=== PATIENT | female | born 2000 | race Caucasian/White ===

== ENCOUNTER 2021-01-16 14:38 | Emergency (ER) | payer BC ==
[2021-01-16 15:02] VITALS: O2SAT 98
[2021-01-16 15:45] LABS: Appearance CLOUDY (CLEAR); Bacteria FEW /HPF (NEGATIVE); Bilirubin NEGATIVE (NEGATIVE); Blood LARGE Ery/ul (0-5); Epithelial Cells MANY /HPF (FEW); Glucose NEGATIVE (NEGATIVE); Ketones NEGATIVE (NEGATIVE); Leukocyte Esterase MODERATE (NEGATIVE); Mucus SLIGHT /HPF (NEGATIVE); Nitrite NEGATIVE (NEGATIVE); Protein,Urine Dip 100 (Negative); RBC 51-100 /HPF (0-2); Specific Gravity 1.029 (1.005-1.025); Urobilinogen NEGATIVE mg/dL (0-1); WBC >100 /HPF (0-5)
[2021-01-16 15:57] LABS: Absolute Neutrophil Ct (ANC) 6.43 (1.4-6.9); BASOPHIL % 0.3 % (0.0-0.4); Basophil (Absolute #) 0.03 (0-0.4); Eosinophil % 1.2 % (0.00-5.0); Eosinophil (Absolute #) 0.14 (0-0.5); Hematocrit 42.9 % (35-47); Hemoglobin 14.3 gm/dl (12.0-16.0); Lymphocyte (Absolute #) 4.33 (1.0-4.6); Lymphocytes % 36.2 % (24.0-44.0); Mean Cell Volume 93.9 fl (78-100); Mean Corpuscular Hemoglobin 31.3 pg (26-32); Mean Corpuscular Hgb Concent. 33.3 g/dl (32-36); Mean Platelet Volume 10.8 fl (7.5-11.0); Monocyte (Absolute #) 1.02 (0.0-1.3); Monocytes % 8.5 % (0.0-12.0); Neutrophil % 53.8 % (36.0-66.0); Platelet Count 285 K/mm3 (150-450); Red Blood Count 4.57 M/mm3 (4.1-5.4); Red Cell Distribution Width 12.6 % (11.5-14.0)
[2021-01-16 16:21] LABS: ALBUMIN 4.3 g/dL (3.5-5.0); ALKALINE PHOSPHATASE 82 U/L (38-126); ANION GAP 12.5 MEQ/L (5-15); BLOOD UREA NITROGEN 10 mg/dL (7-17); CHLORIDE 103 mmol/L (98-107); Calcium 9.8 mg/dL (8.4-10.2); Carbon Dioxide 27 mmol/L (22-30); Creatinine 1 0.63 mg/dL (0.52-1.04); EST GLOMERULAR FILTRATION RATE > 60.0 ML/MIN; Glucose 89 mg/dL (74-106); Potassium 4.3 mmol/L (3.5-5.1); SGOT/AST 45 U/L (14-36); SGPT/ALT 40 U/L (0-35); SODIUM 138 mmol/L (137-145); Total Protein 8.2 g/dL (6.3-8.2)
--- NOTE | 2021-01-16 16:30 | ERPHSYRPT ---
- History of Present Illness Time Seen by Provider: 01/16/21 14:50 Source: patient Exam Limitations: no limitations Patient Subjective Stated Complaint: pelvic pain Triage Nursing Assessment: pt to ED c/o pelvic pain x 3 days. states pain started as burning within her vagina but has now starting burning throughout entire pelvic region. states she was menstrating for 2 days that ended yesterday, which is when pain increased. pt reports hx PCOS but normally has month menstration lasting 7 days. does not take any form of control. sexually active last 2 months ago, unknown status. Physician History: Patient is a 20-year-old 0 para 0 who presents with pelvic pain. She has been diagnosed clinically with polycystic ovary syndrome and normally has weekly her week long periods on a regular basis. The last 3 to 4 months has been irregular. She started. Which lasted only 2 days and stopped. She had last had intercourse approximately 2 months ago and had a home test that was negative. After her period stop she began having burning pain in the vaginal area which has spread to involve most of the pelvis. Timing/Duration: day(s) (4) Activites at Onset: none Quality: burning Pain Radiation: vaginal Severity of Pain-Max: moderate Severity of Pain-Current: mild Prior abdominal problems: none Sexual intercourse history: non-contributory Modifying Factors: Improves With: nothing Associated Symptoms: dysuria, No vaginal discharge, No vaginal fluid leakage Allergies/Adverse Reactions: No Known Drug Allergies Allergy (Unverified 01/16/21 15:02) Hx Tetanus, Diphtheria Vaccination/Date Given: Yes Hx Influenza Vaccination/Date Given: Yes Hx Pneumococcal Vaccination/Date Given: No Travel Risk - International Travel Have you traveled outside of the country in past 3 weeks: No - Coronavirus Screening Are you exhibiting any of the following symptoms?: No Close contact with a COVID-19 positive Pt in past 14-21 Days: No - Vaccine Status Have you recieved a Covid-19 vaccination: No - Review of Systems Constitutional: No Fever, No Chills Eyes: No Symptoms Ears, Nose, & Throat: No Symptoms Respiratory: No Cough, No Dyspnea Cardiac: No Chest Pain, No Edema, No Syncope Abdominal/Gastrointestinal: No Abdominal Pain, No Nausea, No Vomiting, No Diarrhea Genitourinary Symptoms: Other (Vaginal and pelvic burning pain), No Dysuria Musculoskeletal: No Back Pain, No Neck Pain Skin: No Rash Neurological: No Dizziness, No Focal Weakness, No Sensory Changes Psychological: No Symptoms Endocrine: No Symptoms All Other Systems: Reviewed and Negative - Past Medical History Pertinent Past Medical History: Yes Other Medical History: PCOS, [place] wears hearing aids - Past Surgical History Past Surgical History: No - Social History Smoking Status: Never smoker Exposure to second hand smoke: No Drug Use: none Patient Lives Alone: No - Female History Hx Last Menstrual Period: 2 days ago Hx Now: No - Nursing Vital Signs Nursing Vital Signs: Initial Vital Signs Temperature 97.5 F 01/16/21 14:45 Pulse Rate 72 01/16/21 14:45 Respiratory Rate 18 01/16/21 14:45 Blood Pressure 133/101 01/16/21 14:45 O2 Sat by Pulse Oximetry 98 01/16/21 14:45 Pain Scale Pain Intensity 6 - Physical Exam General Appearance: mild distress Eye Exam: PERRL/EOMI, eyes nml inspection Ears, Nose, Throat Exam: normal ENT inspection, TMs normal, pharynx normal, moist mucous membranes Neck Exam: normal inspection, non-tender, supple, full range of motion Respiratory Exam: normal breath sounds, lungs clear, No respiratory distress Cardiovascular Exam: regular rate/rhythm, normal heart sounds, normal peripheral pulses Gastrointestinal/Abdomen Exam: soft, No tenderness, No mass Pelvic Exam: adnexal tenderness (No adnexal tenderness), No cervical motion tenderness, No vaginal bleeding Back Exam: normal inspection, normal range of motion, No CVA tenderness, No vertebral tenderness Extremity Exam: normal inspection, normal range of motion, pelvis stable Neurologic Exam: alert, oriented x 3, cooperative, dry primer powder blender II-XII nml as tested, normal mood/affect, sensation nml, No motor deficits Skin Exam: normal color, warm, dry Lymphatic Exam: No adenopathy SpO2: 98 - Radiology Ultrasound Exam Pelvis Ultrasound: negative, No Mass, No Torsion/Nml Flow Ordered Tests: Active Orders 24 hr Category Date Time Status PELVIS TRANS VAGINAL [US] Stat Exams 01/16/21 15:34 Taken CBC W DIFF Stat Lab 01/16/21 15:54 Completed CMP Stat Lab 01/16/21 15:54 Completed CULTURE,URINE Stat Lab 01/16/21 15:39 Received HCG QUALITATIVE,SERUM Stat Lab 01/16/21 15:54 Completed UA W/RFX UR CULTURE Stat Lab 01/16/21 15:39 Completed Lab/Rad Data: Laboratory Result Diagrams 01/16/21 15:54 01/16/21 15:54 Laboratory Results 01/16/21 01/16/21 01/16/21 Range/Units 15:54 15:54 15:54 WBC 12.0 H (4.0-10.5) K/mm3 RBC 4.57 (4.1-5.4) M/mm3 Hgb 14.3 (12.0-16.0) gm/dl Hct 42.9 (35-47) % MCV 93.9 (78-100) fl MCH 31.3 (26-32) pg MCHC 33.3 (32-36) g/dl RDW 12.6 (11.5-14.0) % Plt Count 285 (150-450) K/mm3 MPV 10.8 (7.5-11.0) fl Gran % 53.8 (36.0-66.0) % Eos # (Auto) 0.14 (0-0.5) Absolute Lymphs (auto) 4.33 (1.0-4.6) Absolute Monos (auto) 1.02 (0.0-1.3) Lymphocytes % 36.2 (24.0-44.0) % Monocytes % 8.5 (0.0-12.0) % Eosinophils % 1.2 (0.00-5.0) % Basophils % 0.3 (0.0-0.4) % Absolute Granulocytes 6.43 (1.4-6.9) Basophils # 0.03 (0-0.4) Sodium 138 (137-145) mmol/L Potassium 4.3 (3.5-5.1) mmol/L Chloride 103 (98-107) mmol/L Carbon Dioxide 27 (22-30) mmol/L Anion Gap 12.5 (5-15) MEQ/L BUN 10 (7-17) mg/dL Creatinine 0.63 (0.52-1.04) mg/dL Estimated GFR > 60.0 ML/MIN Glucose 89 (74-106) mg/dL Calcium 9.8 (8.4-10.2) mg/dL Total Bilirubin 0.60 (0.2-1.3) mg/dL AST 45 H (14-36) U/L ALT 40 H (0-35) U/L Alkaline Phosphatase 82 (38-126) U/L Serum Total Protein 8.2 (6.3-8.2) g/dL Albumin 4.3 (3.5-5.0) g/dL Serum , Qual NEGATIVE (Negative) Urine Color (YELLOW) Urine Appearance (CLEAR) Urine pH (5-6) Ur Specific [place] (1.005-1.025) Urine Protein (Negative) Urine Ketones (NEGATIVE) Urine Blood (0-5) Jameel/ul Urine Nitrite (NEGATIVE) Urine Bilirubin (NEGATIVE) Urine Urobilinogen (0-1) mg/dL Ur Leukocyte Esterase (NEGATIVE) Urine WBC (Auto) (0-5) /HPF Urine RBC (Auto) (0-2) /HPF U Epithel Cells (Auto) (FEW) /HPF Urine Bacteria (Auto) (NEGATIVE) /HPF Urine Mucus (Auto) (NEGATIVE) /HPF Urine Culture Reflexed (NO) Urine Glucose (NEGATIVE) mg/dL 01/16/21 Range/Units 15:39 WBC (4.0-10.5) K/mm3 RBC (4.1-5.4) M/mm3 Hgb (12.0-16.0) gm/dl Hct (35-47) % MCV (78-100) fl MCH (26-32) pg MCHC (32-36) g/dl RDW (11.5-14.0) % Plt Count (150-450) K/mm3 MPV (7.5-11.0) fl Gran % (36.0-66.0) % Eos # (Auto) (0-0.5) Absolute Lymphs (auto) (1.0-4.6) Absolute Monos (auto) (0.0-1.3) Lymphocytes % (24.0-44.0) % Monocytes % (0.0-12.0) % Eosinophils % (0.00-5.0) % Basophils % (0.0-0.4) % Absolute Granulocytes (1.4-6.9) Basophils # (0-0.4) Sodium (137-145) mmol/L Potassium (3.5-5.1) mmol/L Chloride (98-107) mmol/L Carbon Dioxide (22-30) mmol/L Anion Gap (5-15) MEQ/L BUN (7-17) mg/dL Creatinine (0.52-1.04) mg/dL Estimated GFR ML/MIN Glucose (74-106) mg/dL Calcium (8.4-10.2) mg/dL Total Bilirubin (0.2-1.3) mg/dL AST (14-36) U/L ALT (0-35) U/L Alkaline Phosphatase (38-126) U/L Serum Total Protein (6.3-8.2) g/dL Albumin (3.5-5.0) g/dL Serum , Qual (Negative) Urine Color DOMO (YELLOW) Urine Appearance CLOUDY (CLEAR) Urine pH 5.0 (5-6) Ur Specific [place] 1.029 (1.005-1.025) Urine Protein 100 (Negative) Urine Ketones NEGATIVE (NEGATIVE) Urine Blood LARGE (0-5) Jameel/ul Urine Nitrite NEGATIVE (NEGATIVE) Urine Bilirubin NEGATIVE (NEGATIVE) Urine Urobilinogen NEGATIVE (0-1) mg/dL Ur Leukocyte Esterase MODERATE (NEGATIVE) Urine WBC (Auto) >100 (0-5) /HPF Urine RBC (Auto) 51-100 (0-2) /HPF U Epithel Cells (Auto) MANY (FEW) /HPF Urine Bacteria (Auto) FEW (NEGATIVE) /HPF Urine Mucus (Auto) SLIGHT (NEGATIVE) /HPF Urine Culture Reflexed YES (NO) Urine Glucose NEGATIVE (NEGATIVE) mg/dL - Progress Progress: improved Air Movement: good Blood Culture(s) Obtained: No Antibiotics given: No - Departure Departure Disposition: Home Clinical Impression: Urinary tract infection Condition: Stable Critical Care Time: No Referrals: DOCTOR,NO FAMILY [Primary Care Provider] - Instructions: Urinary Tract Infection, Adult (DC) Prescriptions: Cephalexin Mh 500 mg [Keflex 500 mg] 500 mg PO TID #21 cap
--- NOTE | 2021-01-16 16:37 | XRAY ---
Indication: Pelvic pain. Two-dimensional transvaginal pelvic sonogram performed. Comparison: None Uterus anteverted measuring 7.6 x 4.2 x 4.8 cm. Cervix demonstrates 4 mm nabothian cyst. Remaining myometrium homogeneous. Endometrial stripe measures 4.9 mm. No endometrial cavity mass or fluid collection. Right ovary measures 2.0 x 1.6 x 1.6 cm and the left measures 2.1 x 1.4 x 1.8 cm. Normal perfusion bilaterally. No suspicious adnexal mass or free fluid. Impression: Tiny cervical nabothian cyst. Remaining transvaginal pelvic sonogram is negative.
[2021-01-16 16:39] VITALS: BP 129/82; PULSE 82
== END 2021-01-16 17:09 | disposition home or self-care (01) ==
LOC: ED 14:38
DX: R10.2 Pelvic and perineal pain (principal); E28.2 Polycystic ovarian syndrome; N39.0 Urinary tract infection, site not specified
CPT/HCPCS: 36415; 76830; 80053; 81001; 81025; 85025; 87077; 87086; 87186; 99283

== ENCOUNTER 2021-01-20 01:28 | Emergency (ER) | payer BC ==
[2021-01-20] MEDS ORDERED: Levofloxacin 500 MG Tablet PO ONE (01:43)
[2021-01-20] MEDS ORDERED: Diflucan 100 MG PO ONE (01:44)
[2021-01-20 01:53] LABS: Appearance CLOUDY (CLEAR); Bacteria MODERATE /HPF (NEGATIVE); Bilirubin NEGATIVE (NEGATIVE); Blood MODERATE Ery/ul (0-5); Epithelial Cells FEW /HPF (FEW); Glucose NEGATIVE (NEGATIVE); Ketones NEGATIVE (NEGATIVE); Leukocyte Esterase MODERATE (NEGATIVE); Mucus SLIGHT /HPF (NEGATIVE); Nitrite NEGATIVE (NEGATIVE); Protein,Urine Dip 30 (Negative); RBC 51-100 /HPF (0-2); Specific Gravity 1.031 (1.005-1.025); Urobilinogen NEGATIVE mg/dL (0-1); WBC 51-100 /HPF (0-5)
[2021-01-20] MEDS ORDERED: Levofloxacin 500 MG Tablet ONE (01:56)
--- NOTE | 2021-01-20 02:01 | ERPHSYRPT ---
- History of Present Illness Time Seen by Provider: 01/20/21 01:58 Source: patient, mortgage loan underwriter Exam Limitations: no limitations Patient Subjective Stated Complaint: pt states "My stomach is hurting more now and I can't poop." Triage Nursing Assessment: pt ambulated into the er; pt is axo x4; [place]; c/o abd pain; states 8/10 pain to RLQ; pt states worsen pain since last visit; pt states "I had a UTI and on antibotics for it."; pt has tenderness to RLQ and rt flank region; abd obese, soft, round, tender; active bowel sounds in all quads; pt states discharge present; vitals wnl Physician History: pt states "My stomach is hurting more now and I can't poop." Patient is 20-year-old female was in the emergency room 1 week ago when she was diagnosed with UTI and was started on cephalexin. Patient urine microbiology r eport shows that patient is sensitive to Levaquin and meropenem and it was showing Proteus organism. Patient finished all antibiotic but without any help started having more problems with abdominal pain and unable to pass the bowel movement. She denies any fever chills nausea or vomiting. Because her symptoms did not relieve and that is why she came to the emergency room. Patient is deaf and require instructional design technologist. Quality: cramping Onset Location: RLQ Severity of Pain-Max: moderate Severity of Pain-Current: moderate Allergies/Adverse Reactions: No Known Drug Allergies Allergy (Unverified 01/16/21 15:02) Hx Tetanus, Diphtheria Vaccination/Date Given: Yes Hx Influenza Vaccination/Date Given: Yes Hx Pneumococcal Vaccination/Date Given: No Travel Risk - International Travel Have you traveled outside of the country in past 3 weeks: No - Coronavirus Screening Are you exhibiting any of the following symptoms?: No Close contact with a COVID-19 positive Pt in past 14-21 Days: No - Vaccine Status Have you recieved a Covid-19 vaccination: No - Review of Systems Constitutional: No Fever, No Chills Eyes: No Symptoms Ears, Nose, & Throat: No Symptoms Respiratory: No Cough, No Dyspnea Cardiac: No Chest Pain, No Edema, No Syncope Abdominal/Gastrointestinal: Abdominal Pain, No Nausea, No Vomiting, No Diarrhea Genitourinary Symptoms: Dysuria, Frequency, Urgency Musculoskeletal: No Back Pain, No Neck Pain Skin: No Rash Neurological: No Dizziness, No Focal Weakness, No Sensory Changes Psychological: No Symptoms Endocrine: No Symptoms All Other Systems: Reviewed and Negative - Past Medical History Pertinent Past Medical History: Yes Other Medical History: PCOS, [place] wears hearing aids - Past Surgical History Past Surgical History: No - Social History Smoking Status: Never smoker Exposure to second hand smoke: No Drug Use: none Patient Lives Alone: No - Female History Hx Now: No - Nursing Vital Signs Nursing Vital Signs: Initial Vital Signs Temperature 97.9 F 01/20/21 01:44 Pulse Rate 94 H 01/20/21 01:44 Respiratory Rate 18 01/20/21 01:44 Blood Pressure 127/81 01/20/21 01:44 O2 Sat by Pulse Oximetry 96 01/20/21 01:44 Pain Scale Pain Intensity 6 - Physical Exam General Appearance: no apparent distress, alert Eye Exam: PERRL/EOMI, eyes nml inspection Ears, Nose, Throat Exam: normal ENT inspection, TMs normal, pharynx normal, moist mucous membranes Neck Exam: normal inspection, non-tender, supple, full range of motion Respiratory Exam: normal breath sounds, lungs clear, No respiratory distress Cardiovascular Exam: regular rate/rhythm, normal heart sounds, normal peripheral pulses Gastrointestinal/Abdomen Exam: soft, tenderness (RLQ), No mass Back Exam: normal inspection, normal range of motion, No CVA tenderness, No vertebral tenderness Extremity Exam: normal inspection, normal range of motion, pelvis stable Neurologic Exam: alert, oriented x 3, cooperative, morgue technician II-XII nml as tested, normal mood/affect, sensation nml, No motor deficits Skin Exam: normal color, warm, dry Lymphatic Exam: No adenopathy SpO2: 96 - Course Nursing assessment & vital signs reviewed: Yes - CT Exams Abdomen/Pelvis CT Interpretation: Tele-radiologist Report, Normal Appendix, No appendicitis Ordered Tests: Active Orders 24 hr Category Date Time Status ABDOMEN AND PELVIS W/0 CONTRAS [CT] Stat Exams 01/20/21 02:02 Taken AMYLASE Stat Lab 01/20/21 02:34 Completed CBC W DIFF Stat Lab 01/20/21 02:34 Completed CMP Stat Lab 01/20/21 02:34 Completed CULTURE,URINE Stat Lab 01/20/21 01:44 Received HCG QUALITATIVE,SERUM Stat Lab 01/20/21 02:34 Completed LIPASE Stat Lab 01/20/21 02:34 Completed UA W/RFX UR CULTURE Stat Lab 01/20/21 01:44 Completed Medication Summary Generic Name Dose Route Start Last Admin Trade Name Dick PRN Reason Stop Dose Admin Sodium Chloride 1,000 mls @ 999 mls/hr 01/20/21 02:04 01/20/21 02:41 Sodium Chloride 0.9% 1000 Ml IV 01/20/21 03:04 999 mls/hr .[id number] STA Administration Discontinued Medications Generic Name Dose Route Start Last Admin Trade Name Dick PRN Reason Stop Dose Admin Fluconazole 150 mg 01/20/21 01:44 Diflucan 100 Mg PO 01/20/21 01:45 ONCE ONE Sodium Chloride Confirm 01/20/21 02:40 Sodium Chloride 0.9% 1000 Ml Administered 01/20/21 02:41 Dose 1,000 mls @ ud .ROUTE .STK-MED ONE Ketorolac Tromethamine 30 mg 01/20/21 02:39 01/20/21 02:41 Toradol 30 Mg Injection IV 01/20/21 02:40 30 mg STAT ONE Administration Ketorolac Tromethamine Confirm 01/20/21 02:39 Toradol 30 Mg Injection Administered 01/20/21 02:40 Dose 30 mg .ROUTE .STK-MED ONE Levofloxacin 500 mg 01/20/21 01:43 Levofloxacin 500 Mg Tablet PO 01/20/21 01:44 STAT ONE Levofloxacin Confirm 01/20/21 01:56 Levofloxacin 500 Mg Tablet Administered 01/20/21 01:57 Dose 500 mg .ROUTE .STK-MED ONE Lab/Rad Data: Laboratory Result Diagrams 01/20/21 02:34 01/20/21 02:34 Laboratory Results 01/20/21 01/20/21 01/20/21 Range/Units 02:34 02:34 02:34 WBC 13.4 H (4.0-10.5) K/mm3 RBC 4.45 (4.1-5.4) M/mm3 Hgb 14.0 (12.0-16.0) gm/dl Hct 41.6 (35-47) % MCV 93.5 (78-100) fl MCH 31.5 (26-32) pg MCHC 33.7 (32-36) g/dl RDW 12.6 (11.5-14.0) % Plt Count 295 (150-450) K/mm3 MPV 10.7 (7.5-11.0) fl Gran % 62.7 (36.0-66.0) % Eos # (Auto) 0.08 (0-0.5) Absolute Lymphs (auto) 3.78 (1.0-4.6) Absolute Monos (auto) 1.11 (0.0-1.3) Lymphocytes % 28.2 (24.0-44.0) % Monocytes % 8.3 (0.0-12.0) % Eosinophils % 0.6 (0.00-5.0) % Basophils % 0.2 (0.0-0.4) % Absolute Granulocytes 8.40 H (1.4-6.9) Basophils # 0.03 (0-0.4) Sodium 137 (137-145) mmol/L Potassium 3.8 (3.5-5.1) mmol/L Chloride 102 (98-107) mmol/L Carbon Dioxide 27 (22-30) mmol/L Anion Gap 11.4 (5-15) MEQ/L BUN 7 (7-17) mg/dL Creatinine 0.63 (0.52-1.04) mg/dL Estimated GFR > 60.0 ML/MIN Glucose 96 (74-106) mg/dL Calcium 9.6 (8.4-10.2) mg/dL Total Bilirubin 0.70 (0.2-1.3) mg/dL AST 24 (14-36) U/L ALT 31 (0-35) U/L Alkaline Phosphatase 90 (38-126) U/L Serum Total Protein 8.5 H (6.3-8.2) g/dL Albumin 4.6 (3.5-5.0) g/dL Amylase 54 (30-110) U/L Lipase 38 (23-300) U/L Serum , Qual NEGATIVE (Negative) Urine Color (YELLOW) Urine Appearance (CLEAR) Urine pH (5-6) Ur Specific [place] (1.005-1.025) Urine Protein (Negative) Urine Ketones (NEGATIVE) Urine Blood (0-5) Jameel/ul Urine Nitrite (NEGATIVE) Urine Bilirubin (NEGATIVE) Urine Urobilinogen (0-1) mg/dL Ur Leukocyte Esterase (NEGATIVE) Urine WBC (Auto) (0-5) /HPF Urine RBC (Auto) (0-2) /HPF U Epithel Cells (Auto) (FEW) /HPF Urine Bacteria (Auto) (NEGATIVE) /HPF Urine Mucus (Auto) (NEGATIVE) /HPF Urine Culture Reflexed (NO) Urine Glucose (NEGATIVE) mg/dL 01/20/21 Range/Units 01:44 WBC (4.0-10.5) K/mm3 RBC (4.1-5.4) M/mm3 Hgb (12.0-16.0) gm/dl Hct (35-47) % MCV (78-100) fl MCH (26-32) pg MCHC (32-36) g/dl RDW (11.5-14.0) % Plt Count (150-450) K/mm3 MPV (7.5-11.0) fl Gran % (36.0-66.0) % Eos # (Auto) (0-0.5) Absolute Lymphs (auto) (1.0-4.6) Absolute Monos (auto) (0.0-1.3) Lymphocytes % (24.0-44.0) % Monocytes % (0.0-12.0) % Eosinophils % (0.00-5.0) % Basophils % (0.0-0.4) % Absolute Granulocytes (1.4-6.9) Basophils # (0-0.4) Sodium (137-145) mmol/L Potassium (3.5-5.1) mmol/L Chloride (98-107) mmol/L Carbon Dioxide (22-30) mmol/L Anion Gap (5-15) MEQ/L BUN (7-17) mg/dL Creatinine (0.52-1.04) mg/dL Estimated GFR ML/MIN Glucose (74-106) mg/dL Calcium (8.4-10.2) mg/dL Total Bilirubin (0.2-1.3) mg/dL AST (14-36) U/L ALT (0-35) U/L Alkaline Phosphatase (38-126) U/L Serum Total Protein (6.3-8.2) g/dL Albumin (3.5-5.0) g/dL Amylase (30-110) U/L Lipase (23-300) U/L Serum , Qual (Negative) Urine Color DOMO (YELLOW) Urine Appearance CLOUDY (CLEAR) Urine pH 5.0 (5-6) Ur Specific [place] 1.031 (1.005-1.025) Urine Protein 30 (Negative) Urine Ketones NEGATIVE (NEGATIVE) Urine Blood MODERATE (0-5) Jameel/ul Urine Nitrite NEGATIVE (NEGATIVE) Urine Bilirubin NEGATIVE (NEGATIVE) Urine Urobilinogen NEGATIVE (0-1) mg/dL Ur Leukocyte Esterase MODERATE (NEGATIVE) Urine WBC (Auto) 51-100 (0-5) /HPF Urine RBC (Auto) 51-100 (0-2) /HPF U Epithel Cells (Auto) FEW (FEW) /HPF Urine Bacteria (Auto) MODERATE (NEGATIVE) /HPF Urine Mucus (Auto) SLIGHT (NEGATIVE) /HPF Urine Culture Reflexed YES (NO) Urine Glucose NEGATIVE (NEGATIVE) mg/dL - Progress Progress: unchanged Air Movement: good Blood Culture(s) Obtained: No Antibiotics given: Yes Counseled pt/family regarding: lab results, diagnosis, need for follow-up, rad results - Departure Departure Disposition: Home Clinical Impression: Pyelonephritis Condition: Stable Critical Care Time: No Referrals: DOCTOR,NO FAMILY [Primary Care Provider] - Instructions: Kidney Infection Additional Instructions: Discharge/Care Plan JOSH MATTHEWS was seen on 01/20/21 in the Emergency Room. The patient was counseled regarding Diagnosis,Lab results, Imaging studies, need for follow up and when to return to the Emergency Room. Prescriptions given: Discharge Note I have spoken with the patient and/or caregivers. I have explained the patient's condition, diagnosis and treatment plan based on the information available to me at this time. I have answered the patient's and/or caregiver's questions and addressed any concerns. The patient and/or caregivers have as good understanding of the patient's diagnosis, condition and treatment plan as can be expected at this point. The vital signs have been stable. The patient's condition is stable and appropriate for discharge from the emergency department. The patient will pursue further outpatient evaluation with the primary care physician or other designated or consulting physician as outlined in the discharge instructions. The patient and/or caregivers are agreeable to this plan of care and follow-up instructions have been explained in detail. The patient and/or caregivers have received these instruction. The patient/and or caregivers are aware that any significant change in condition or worsening of symptoms should prompt an immediate return to this or the closest emergency department or call 911. JOSH MATTHEWS was seen on 01/20/21 n the Emergency Room. At that time you were treated for an emergent condition, during your visit Laboratory, Radiology and/or other procedures may have been ordered. It is very important that you f ollow-up with your Primary Care Physician NO FAMILY DOCTOR within the next 24-48 hours to review your Emergency Room visit and the final results of testing that was ordered. Some test results such as Urine Cultures, Blood Cultures, and other cultures if ordered will not be finalized for 24-48 hours. If you do not have a Primary Care Provider please call the medical records department at [phone] to obtain a copy of your results or you may sign into our patient portal to obtain these results by visiting us @ [email or web address] and completing the following steps: 1. Click on the Patient Portal link 2. Click the Patient Self Enrollment Link to complete the enrollment form and entering your 3. Once the enrollment form is completed you will receive an email with a temporary ID and password at the email address you provided. 4. Next choose a user name and password. Your user name must be at least 4 c haracters long and your password must be at least 4 characters long. 5. Choose a security question from the list and provide your answer to the question. If you already have signed into the Health Portal you may access your Health Care Information 24/11 by the following steps: 1. Login to our website @ [email or web address] 2. Enter your original user name and password. FAQS The [facility] Health Portal is an online tool that contains your Lab Results, Radiology Reports, Visit History, Discharge Instructions and Health Summary Lab and Radiology Results will not be available for 72 hours on the portal. The Portal is a secure site, passwords are encryted and URLs are re-written so they cannot be copied and pasted. You and authorized family members are the only ones who can access your Portal. Also there is a timeout feature that protects your information if you leave the Portal page open. If you have technical difficulty please use the Contact Us link on the page this will allow you to submit any questions you have regarding the Portal or you may contact the Medical Record Department at [phone]. Prescriptions: Levofloxacin [Levaquin 500 MG Tablet] 500 mg PO QAM #5 tablet
[2021-01-20] MEDS ORDERED: Sodium Chloride 0.9% 1000 ML 1,000 ML IV STA (02:04)
[2021-01-20 02:37] LABS: BASOPHIL % 0.2 % (0.0-0.4); Basophil (Absolute #) 0.03 (0-0.4); Eosinophil % 0.6 % (0.00-5.0); Eosinophil (Absolute #) 0.08 (0-0.5); Hematocrit 41.6 % (35-47); Lymphocyte (Absolute #) 3.78 (1.0-4.6); Lymphocytes % 28.2 % (24.0-44.0); Mean Cell Volume 93.5 fl (78-100); Mean Corpuscular Hemoglobin 31.5 pg (26-32); Mean Corpuscular Hgb Concent. 33.7 g/dl (32-36); Mean Platelet Volume 10.7 fl (7.5-11.0); Monocyte (Absolute #) 1.11 (0.0-1.3); Monocytes % 8.3 % (0.0-12.0); Neutrophil % 62.7 % (36.0-66.0); Platelet Count 295 K/mm3 (150-450); Red Blood Count 4.45 M/mm3 (4.1-5.4); Red Cell Distribution Width 12.6 % (11.5-14.0); White Blood Count 13.4 K/mm3 (4.0-10.5)
[2021-01-20] MEDS ORDERED: TORAdol 30 mg Injection IV ONE (02:39)
[2021-01-20] MEDS ORDERED: TORAdol 30 mg Injection ONE (02:39)
[2021-01-20] MEDS ORDERED: Sodium Chloride 0.9% 1000 ML 1,000 ML ONE (02:40)
[2021-01-20 02:49] LABS: ALBUMIN 4.6 g/dL (3.5-5.0); ALKALINE PHOSPHATASE 90 U/L (38-126); AMYLASE 54 U/L (30-110); ANION GAP 11.4 MEQ/L (5-15); BLOOD UREA NITROGEN 7 mg/dL (7-17); CHLORIDE 102 mmol/L (98-107); Calcium 9.6 mg/dL (8.4-10.2); Carbon Dioxide 27 mmol/L (22-30); Creatinine 1 0.63 mg/dL (0.52-1.04); EST GLOMERULAR FILTRATION RATE > 60.0 ML/MIN; Glucose 96 mg/dL (74-106); LIPASE 38 U/L (23-300); Potassium 3.8 mmol/L (3.5-5.1); SGOT/AST 24 U/L (14-36); SGPT/ALT 31 U/L (0-35); SODIUM 137 mmol/L (137-145); Total Protein 8.5 g/dL (6.3-8.2)
[2021-01-20 03:18] VITALS: BP 114/67; PULSE 87; O2SAT 97
--- NOTE | 2021-01-20 07:46 | XRAY ---
Indication: Right lower quadrant pain. UTI. Multiple contiguous axial images obtained through the abdomen and pelvis without contrast as ordered. Comparison: None. Lung bases are clear. Heart not enlarged. Noncontrasted stomach and bowel loops appear nonobstructed with normal appendix. No free fluid/air. Spleen is enlarged measuring 14.5 cm. Remaining liver, gallbladder, pancreas, spleen, adrenal glands, kidneys, ureters, bladder, uterus, and aorta are unremarkable for noncontrast exam. Osseous structures intact. No ventral or inguinal hernias. Impression: 1. Splenomegaly. 2. Remaining CT abdomen/pelvis without contrast exam is negative. Comment: Preliminary interpretation made by [facility]. No critical discrepancy.
== END 2021-01-20 03:35 | disposition home or self-care (01) ==
LOC: ED 01:28
DX: N12 Tubulo-interstitial nephritis, not specified as acute or chronic (principal); R10.31 Right lower quadrant pain
CPT/HCPCS: 36000; 36415; 74176; 80053; 81001; 81025; 82150; 83690; 85025; 87077; 87086; 87186; 96374; 99284; J1885; A9270-GY

== ENCOUNTER 2023-04-25 00:51 | Emergency (ER) | payer BC ==
--- NOTE | 2023-04-25 00:56 | ERPHSYRPT ---
- History of Present Illness Time Seen by Provider: 04/25/23 02:55 Historian: patient Exam Limitations: no limitations Physician History: This is a 23-year-old white female patient with epigastric abdominal pain. Initially, the patient had nausea without vomiting. About 8 hours ago began having constant epigastric pain. Symptoms have been worsening. Patient denies chest pain. Patient denies shortness of breath. Patient denies diarrhea. Patient has a history of polycystic ovary syndrome. Patient is hard of hearing. She has not had a fever. She denies cough. Timing/Duration: week(s), worse Abdominal Pain Onset Location: epigastric Pain Radiation: no radiation Severity of Pain-Max: moderate Severity of Pain-Current: moderate Modifying Factors: Improves With: nothing Associated Symptoms: nausea Previous symptoms: no recent treatment Allergies/Adverse Reactions: No Known Drug Allergies Allergy (Verified 04/25/23 02:21) Hx Tetanus, Diphtheria Vaccination/Date Given: Yes Hx Influenza Vaccination/Date Given: Yes Hx Pneumococcal Vaccination/Date Given: No Travel Risk - International Travel Have you traveled outside of the country in past 3 weeks: No - Coronavirus Screening Are you exhibiting any of the following symptoms?: Yes Close contact with a COVID-19 positive Pt in past 14-21 Days: No - Vaccine Status Have you recieved a Covid-19 vaccination: No - Review of Systems Constitutional: Weakness Eyes: No Symptoms Ears, Nose, & Throat: No Symptoms Respiratory: No Symptoms Abdominal/Gastrointestinal: Abdominal Pain (Epigastric), Nausea, Appetite Changes Genitourinary Symptoms: No Symptoms Musculoskeletal: No Symptoms Skin: No Symptoms Neurological: No Symptoms Psychological: No Symptoms Endocrine: No Symptoms Hematologic/Lymphatic: No Symptoms Immunological/Allergic: No Symptoms All Other Systems: Reviewed and Negative - Past Medical History Pertinent Past Medical History: Yes Neurological History: No Pertinent History ENT History: No Pertinent History Cardiac History: No Pertinent History Respiratory History: No Pertinent History Endocrine Medical History: No Pertinent History Musculoskeletal History: No Pertinent History GI Medical History: No Pertinent History History: No Pertinent History Psycho-Social History: Depression Female Reproductive Disorders: No Pertinent History Other Medical History: PCOS, [place] wears hearing aids - Past Surgical History Past Surgical History: No Neuro Surgical History: No Pertinent History Cardiac: No Pertinent History Respiratory: No Pertinent History Gastrointestinal: No Pertinent History Genitourinary: No Pertinent History Musculoskeletal: No Pertinent History Female Surgical History: No Pertinent History - Social History Smoking Status: Never smoker Exposure to second hand smoke: No Drug Use: marijuana Patient Lives Alone: No - Nursing Vital Signs Nursing Vital Signs: Initial Vital Signs Temperature 96.8 F 04/25/23 02:32 Pulse Rate 83 04/25/23 02:32 Respiratory Rate 22 04/25/23 02:32 Blood Pressure 140/100 04/25/23 02:32 O2 Sat by Pulse Oximetry 98 04/25/23 02:32 Pain Scale Pain Intensity 8 - Physical Exam General Appearance: no apparent distress, alert, anxiety Eye Exam: PERRL/EOMI, eyes nml inspection Ears, Nose, Throat Exam: normal ENT inspection, moist mucous membranes Neck Exam: normal inspection, non-tender, supple, full range of motion Respiratory Exam: normal breath sounds, lungs clear, airway intact, No chest tenderness, No respiratory distress Cardiovascular Exam: regular rate/rhythm, normal heart sounds, normal peripheral pulses Gastrointestinal/Abdomen Exam: soft, normal bowel sounds, tenderness (Epigastrium), guarding, No rebound Pelvic Exam: not done Rectal Exam: not done Back Exam: normal inspection, normal range of motion, No CVA tenderness, No vertebral tenderness Extremity Exam: normal inspection, normal range of motion, pelvis stable Neurologic Exam: alert, oriented x 3, cooperative, 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, normal mood/affect, nml cerebellar function, nml station & gait, sensation nml Skin Exam: normal color, warm, dry Lymphatic Exam: adenopathy SpO2 Interpretation: normal O2 Delivery: Room Air - Course Nursing assessment & vital signs reviewed: Yes Ordered Tests: Active Orders 24 hr Category Date Time Status ABDOMEN AND PELVIS W/0 CONTRAS [CT] Stat Exams 04/25/23 03:00 Completed AMYLASE Stat Lab 04/25/23 03:06 Completed CBC W DIFF Stat Lab 04/25/23 03:06 Completed CMP Stat Lab 04/25/23 03:06 Completed HCG QUALITATIVE, URINE Stat Lab 04/25/23 02:58 Completed LIPASE Stat Lab 04/25/23 03:06 Completed MONO SCREEN Stat Lab 04/25/23 03:06 Completed UA W/RFX UR CULTURE Stat Lab 04/25/23 02:34 Completed Medication Summary Discontinued Medications Generic Name Dose Route Start Last Admin Trade Name Freq PRN Reason Stop Dose Admin Sodium Chloride 1,000 mls @ 999 mls/hr 04/25/23 03:00 04/25/23 04:16 Sodium Chloride 0.9% 1000 Ml IV 04/25/23 04:00 Infused .Q1H1M STA Infusion Sodium Chloride Confirm 04/25/23 03:11 Sodium Chloride 0.9% 1000 Ml Administered 04/25/23 03:12 Dose 1,000 mls @ ud .ROUTE .STK-MED ONE Pantoprazole Sodium 40 mg 04/25/23 03:00 04/25/23 03:13 Pantoprazole 40 Mg Vial IV 04/25/23 03:01 40 mg STAT ONE Administration Pantoprazole Sodium Confirm 04/25/23 03:11 Pantoprazole 40 Mg Vial Administered 04/25/23 03:12 Dose 40 mg IV .STK-MED ONE Prochlorperazine Edisylate 5 mg 04/25/23 03:00 04/25/23 03:13 Prochlorperazine Edisylate 10 Mg/2 Ml Vial IV 04/25/23 03:01 5 mg STAT ONE Administration Prochlorperazine Edisylate Confirm 04/25/23 03:11 Prochlorperazine Edisylate 10 Mg/2 Ml Vial Administered 04/25/23 03:12 Dose 10 mg .ROUTE .STK-MED ONE Lab/Rad Data: Laboratory Result Diagrams 04/25/23 03:06 04/25/23 03:06 Laboratory Results 04/25/23 04/25/23 04/25/23 Range/Units 03:06 03:06 03:06 WBC 16.1 H (4.0-10.5) x10^3/uL RBC 5.02 (4.1-5.4) x10^6/uL Hgb 15.5 (12.0-16.0) g/dL Hct 45.8 (35-47) % MCV 91.2 (78-100) fL MCH 30.9 (26-32) pg MCHC 33.8 (32-36) g/dL RDW 12.0 (11.5-14.0) % Plt Count 332 (150-450) x10^3/uL MPV 11.1 H (7.5-11.0) fL Gran % 84.2 H (36.0-66.0) % Immature Gran % (Auto) 0.4 (0.00-0.4) % Nucleat RBC Rel Count 0.0 (0.00-0.1) % Eos # (Auto) 0.01 (0-0.5) x10^3/uL Immature Gran # (Auto) 0.06 H (0.00-0.03) x10^3u/L Absolute Lymphs (auto) 1.89 (1.0-4.6) x10^3/uL Absolute Monos (auto) 0.51 (0.0-1.3) x10^3/uL Absolute Nucleated RBC 0.00 (0.00-0.01) x10^3u/L Lymphocytes % 11.7 L (24.0-44.0) % Monocytes % 3.2 (0.0-12.0) % Eosinophils % 0.1 (0.00-5.0) % Basophils % 0.4 (0.0-0.4) % Absolute Granulocytes 13.57 H (1.4-6.9) x10^3/uL Basophils # 0.07 (0-0.4) x10^3/uL Sodium 136 L (137-145) mmol/L Potassium 4.2 (3.5-5.1) mmol/L Chloride 102 (98-107) mmol/L Carbon Dioxide 26 (22-30) mmol/L Anion Gap 12.3 (5-15) MEQ/L BUN 7 (7-17) mg/dL Creatinine 0.54 (0.52-1.04) mg/dL Estimated GFR 133.4 ML/MIN Glucose 118 H (74-106) mg/dL Calcium 9.7 (8.4-10.2) mg/dL Total Bilirubin 0.70 (0.2-1.3) mg/dL AST 35 (14-36) U/L ALT 42 H (0-35) U/L Alkaline Phosphatase 91 (38-126) U/L Serum Total Protein 9.0 H (6.3-8.2) g/dL Albumin 4.8 (3.5-5.0) g/dL Amylase 64 (30-110) U/L Lipase 45 (23-300) U/L Urine Color (Yellow) Urine Appearance (Clear) Urine pH (4.6-8.0) Ur Specific [place] (1.005-1.030) Urine Protein (Negative) Urine Glucose (UA) (Negative) mg/dL Urine Ketones (Negative) Urine Blood (Negative) Urine Nitrite (Negative) Urine Bilirubin (Negative) Urine Urobilinogen (0.2) mg/dL Ur Leukocyte Esterase (Negative) U Hyaline Cast (Auto) (0-2) /LPF Urine Microscopic RBC (0-5) /HPF Urine Microscopic WBC (0-5) /HPF Ur Epithelial Cells (None Seen) /HPF Urine Bacteria (None Seen) /HPF Urine Culture Reflexed (NO) Urine HCG, Qual (NEGATIVE) Monoscreen NEGATIVE (NEGATIVE) Influenza Type A Ag (NEGATIVE) Influenza Type B Ag (NEGATIVE) RSV (PCR) (NEGATIVE) SARS-CoV-2 (PCR) (NEGATIVE) 04/25/23 04/25/23 04/25/23 Range/Units 02:59 02:58 02:34 WBC (4.0-10.5) x10^3/uL RBC (4.1-5.4) x10^6/uL Hgb (12.0-16.0) g/dL Hct (35-47) % MCV (78-100) fL MCH (26-32) pg MCHC (32-36) g/dL RDW (11.5-14.0) % Plt Count (150-450) x10^3/uL MPV (7.5-11.0) fL Gran % (36.0-66.0) % Immature Gran % (Auto) (0.00-0.4) % Nucleat RBC Rel Count (0.00-0.1) % Eos # (Auto) (0-0.5) x10^3/uL Immature Gran # (Auto) (0.00-0.03) x10^3u/L Absolute Lymphs (auto) (1.0-4.6) x10^3/uL Absolute Monos (auto) (0.0-1.3) x10^3/uL Absolute Nucleated RBC (0.00-0.01) x10^3u/L Lymphocytes % (24.0-44.0) % Monocytes % (0.0-12.0) % Eosinophils % (0.00-5.0) % Basophils % (0.0-0.4) % Absolute Granulocytes (1.4-6.9) x10^3/uL Basophils # (0-0.4) x10^3/uL Sodium (137-145) mmol/L Potassium (3.5-5.1) mmol/L Chloride (98-107) mmol/L Carbon Dioxide (22-30) mmol/L Anion Gap (5-15) MEQ/L BUN (7-17) mg/dL Creatinine (0.52-1.04) mg/dL Estimated GFR ML/MIN Glucose (74-106) mg/dL Calcium (8.4-10.2) mg/dL Total Bilirubin (0.2-1.3) mg/dL AST (14-36) U/L ALT (0-35) U/L Alkaline Phosphatase (38-126) U/L Serum Total Protein (6.3-8.2) g/dL Albumin (3.5-5.0) g/dL Amylase (30-110) U/L Lipase (23-300) U/L Urine Color Yellow (Yellow) Urine Appearance Turbid A (Clear) Urine pH 5.0 (4.6-8.0) Ur Specific [place] >=1.030 A (1.005-1.030) Urine Protein Trace A (Negative) Urine Glucose (UA) Negative (Negative) mg/dL Urine Ketones 15 A (Negative) Urine Blood Negative (Negative) Urine Nitrite Negative (Negative) Urine Bilirubin Negative (Negative) Urine Urobilinogen 0.2 (0.2) mg/dL Ur Leukocyte Esterase Negative (Negative) U Hyaline Cast (Auto) NONE SEEN (0-2) /LPF Urine Microscopic RBC 0-2 (0-5) /HPF Urine Microscopic WBC 6-10 A (0-5) /HPF Ur Epithelial Cells Many A (None Seen) /HPF Urine Bacteria Few A (None Seen) /HPF Urine Culture Reflexed NO (NO) Urine HCG, Qual NEGATIVE (NEGATIVE) Monoscreen (NEGATIVE) Influenza Type A Ag NEGATIVE (NEGATIVE) Influenza Type B Ag NEGATIVE (NEGATIVE) RSV (PCR) NEGATIVE (NEGATIVE) SARS-CoV-2 (PCR) NEGATIVE (NEGATIVE) - Progress Progress: improved, pain not gone completely, re-examined Progress Note: 04/25/23 04:35 This patient's medical history is 1 of moderate complexity. Level complex in the workup performed is based on review of the patient's past medical history, review of the patient's medication list, review of the patient's drug allergy list, history present illness and physical findings on examination. This patient's workup includes placement of intravenous line, CBC, CMP, urinalysis, test, amylase and lipase levels, viral swabs, monotest, CT scan of the abdomen pelvis without contrast. I interpreted the patient's laboratory results. Patient does have a leukocytosis and left shift. No other significant emergent findings present on the laboratory data results. CT scan of the abdomen pelvis without contrast was interpreted by the radiologist and I reviewed the impression. There is no acute intra-abdominal or intrapelvic process. No free air or ascites. There is an enlarged left ovary. There is reactive subcentimeter lymph nodes present. There is no CT scan evidence of acute appendicitis. 04/25/23 04:56 Reexamined the patient. When I entered the room patient was resting/sleeping comfortably. Patient did say that she is feeling much better. She does not have the pain and the nausea is well controlled on the Compazine medication. Counseled pt/family regarding: lab results, diagnosis, need for follow-up, rad results Medical Desision Making - Independent Historian Additional History obtained from: Father - Diagnostic Testing Diagnostic test were ordered, analyzed, and reviewed by me: Yes Radiological Interpretation: Reviewed by me, Teleradiologist Report - Risk of complications The pt has a mod risk of morbidity or mortality based on: Need for prescription drug management - Departure Departure Disposition: Home Clinical Impression: Nausea, Epigastric pain, Leukocytosis Condition: Stable Critical Care Time: No Referrals: JANE FU [Primary Care Provider] - Follow up/PCP as directed Additional Instructions: Drink plenty of clear liquids before advancing diet. Avoid fatty greasy spicy foods. Take your medications as prescribed. Call your primary care provider next week to make arrangements for follow-up appointment for further evaluation and management. Prescriptions: Prochlorperazine Maleate 5 mg* [Compazine 5 MG] 5 mg PO QID PRN #12 tablet PRN Reason: Nausea/Vomiting Pantoprazole 20 mg [Protonix 20MG Tablet] 20 mg PO DAILY #10 tab
[2023-04-25] MEDS ORDERED: PROTONIX 40 MG IV IV ONE ×2 (03:00→03:11)
[2023-04-25] MEDS ORDERED: Compazine 10 MG/2 ML IV ONE (03:00)
[2023-04-25] MEDS ORDERED: Sodium Chloride 0.9% 1000 ML 1,000 ML IV STA (03:00)
[2023-04-25 03:04] LABS: HCG URINE TEST NEGATIVE (NEGATIVE)
[2023-04-25 03:08] VITALS: TEMP 96.8
[2023-04-25 03:08] LABS: Absolute Neutrophil Ct (ANC) 13.57 x10^3/uL (1.4-6.9); BASOPHIL % 0.4 % (0.0-0.4); Basophil (Absolute #) 0.07 x10^3/uL (0-0.4); Eosinophil % 0.1 % (0.00-5.0); Eosinophil (Absolute #) 0.01 x10^3/uL (0-0.5); Hematocrit 45.8 % (35-47); Hemoglobin 15.5 g/dL (12.0-16.0); IMMATURE GRAN # 0.06 x10^3u/L (0.00-0.03); IMMATURE GRAN % 0.4 % (0.00-0.4); Lymphocyte (Absolute #) 1.89 x10^3/uL (1.0-4.6); Lymphocytes % 11.7 % (24.0-44.0); Mean Cell Volume 91.2 fL (78-100); Mean Corpuscular Hemoglobin 30.9 pg (26-32); Mean Corpuscular Hgb Concent. 33.8 g/dL (32-36); Mean Platelet Volume 11.1 fL (7.5-11.0); Monocyte (Absolute #) 0.51 x10^3/uL (0.0-1.3); Monocytes % 3.2 % (0.0-12.0); Neutrophil % 84.2 % (36.0-66.0); Platelet Count 332 x10^3/uL (150-450); Red Blood Count 5.02 x10^6/uL (4.1-5.4); White Blood Count 16.1 x10^3/uL (4.0-10.5)
[2023-04-25 03:09] LABS: Appearance Turbid (Clear); Bacteria Few /HPF (None Seen); Bilirubin Negative (Negative); Blood Negative (Negative); Epithelial Cells Many /HPF (None Seen); Glucose, Urine Negative (Negative); Hyaline Casts NONE SEEN /LPF (0-2); Ketones 15 (Negative); Leukocyte Esterase Negative (Negative); Nitrite Negative (Negative); Protein,Urine Dip Trace (Negative); RBC 0-2 /HPF (0-5); Specific Gravity >=1.030 (1.005-1.030); Urobilinogen 0.2 mg/dL (0.2)
[2023-04-25 03:11] LABS: ADD URINE CULTURE? NO (NO)
[2023-04-25] MEDS ORDERED: Compazine 10 MG/2 ML ONE (03:11)
[2023-04-25] MEDS ORDERED: Sodium Chloride 0.9% 1000 ML 1,000 ML ONE (03:11)
[2023-04-25 03:21] LABS: ALBUMIN 4.8 g/dL (3.5-5.0); ANION GAP 12.3 MEQ/L (5-15); BILIRUBIN,TOTAL 0.7 mg/dL (0.2-1.3); Calcium 9.7 mg/dL (8.4-10.2); Creatinine 1 0.54 mg/dL (0.52-1.04); EST GLOMERULAR FILTRATION RATE 133.4 ML/MIN; Potassium 4.2 mmol/L (3.5-5.1)
[2023-04-25 03:39] LABS: INFLUENZA A NEGATIVE (NEGATIVE); INFLUENZA B NEGATIVE (NEGATIVE); RESPIRATORY SYNCTIAL VIRUS NEGATIVE (NEGATIVE); SARS-CoV-2 Xpert Express NEGATIVE (NEGATIVE)
--- NOTE | 2023-04-25 04:27 | XRAY ---
CLINICAL HISTORY:n/v abdominal pain COMPARISON:CT dated 11/21/2022. TECHNIQUE:CT of the abdomen and pelvis was performed in axial plane with sagittal and coronal reconstructed images without intravenous contrast administration FINDINGS: Liver is enlarged in size, measuring 18 cm reflecting diffuse hypodensity. No focal hepatic lesions. No intrahepatic or extrahepatic bile duct dilation. Mild splenomegaly measuring 14 cm at splenic hilum. Unremarkable appearing gallbladder with no stones, wall thickening or pericholecystic inflammatory changes or fluid. Unremarkable appearing pancreas. No pancreatic mass or ductal dilatation is seen. The adrenal glands are normal. The kidneys appear unremarkable with no cysts, calculi, masses, or hydronephrosis. The ureters are normal with no stones. Unremarkable abdominal aorta without specific evidence of aneurysm or dissection. IVC is normal. The stomach appears unremarkable. Small Bowel and colon are non-distended with no abnormality. An appendix outlines normally. No CT findings suggest acute appendicitis. A few subcentimeter benign mesenteric and ileo-colic lymph nodes, likely reactive. No free air and no ascites. No free intraperitoneal air is seen. An under distended urinary bladder is seen. Anteverted uterus outlines normally. The left ovary appears bulky. The right ovary is not confidently visualized. Sections through the lung bases are clear. No osseous lesion is seen in the visualized skeleton. Mild subcutaneous fat stranding is seen in the lateral aspects of the pelvis and back. IMPRESSION: 1. No acute abdominal pathology seen. 2. Stable appearances of hepatic steatosis and mild splenomegaly. 3. Redemonstration of the enlarged left ovary. 4. Few subcentimeter benign mesenteric lymph nodes, likely reactive. 5. No significant changes in comparison with the previous study. Electronically Signed by: Maritza Stahl MD. (04/25/2023 04:23:07 EST)
[2023-04-25 05:27] VITALS: BP 128/67; PULSE 88; RESP 18; O2SAT 97
== END 2023-04-25 05:30 | disposition home or self-care (01) ==
LOC: ED 00:51
DX: R11.0 Nausea (principal); R10.13 Epigastric pain; D72.829 Elevated white blood cell count, unspecified; Z28.310 Unvaccinated for COVID-19
CPT/HCPCS: 0241U; 36000; 36415; 74176; 80053; 81001; 81025; 82150; 83690; 85025; 86308; 96360; 96374; 96375; 99284

== ENCOUNTER 2023-04-26 14:44 | Emergency (ER) | payer BC ==
[2023-04-26 15:17] VITALS: TEMP 97.3
[2023-04-26] MEDS ORDERED: Sodium Chloride 0.9% 1000 ML 1,000 ML IV STA (15:25)
[2023-04-26] MEDS ORDERED: BENADRYL 50 MG/ML IV ONE (15:25)
[2023-04-26] MEDS ORDERED: MORPHINE SULFATE 2 MG INJ IV ONE (15:25)
[2023-04-26] MEDS ORDERED: Zofran 4 MG/2 ML VIAL IV ONE (15:25)
[2023-04-26] MEDS ORDERED: GI COCKTAIL 45 ML (Maalox/Lidocaine) PO ONE (15:25)
[2023-04-26] MEDS ORDERED: Zofran 4 MG/2 ML VIAL ONE (15:30)
[2023-04-26] MEDS ORDERED: BENADRYL 50 MG/ML ONE (15:30)
[2023-04-26] MEDS ORDERED: MORPHINE SULFATE 2 MG INJ ONE (15:30)
[2023-04-26] MEDS ORDERED: XYLOCAINE VISCOUS 2% 15 ML CUP ONE (15:30)
[2023-04-26] MEDS ORDERED: Sodium Chloride 0.9% 1000 ML 1,000 ML ONE (15:31)
[2023-04-26] MEDS ORDERED: MAALOX ES 30 ML UNIT DOSE ONE (15:31)
--- NOTE | 2023-04-26 15:37 | ERPHSYRPT ---
- History of Present Illness Time Seen by Provider: 04/26/23 14:57 Patient Subjective Stated Complaint: Abominal pain Triage Nursing Assessment: Patient ambulated back to ED and transferred self to bed. Patient A+o X3. Patient's skin pink ,warm and dry. Patient complains of mid epigastric pain that goes up 8/10 for the past week. Patient was seen last night and prescribed PO Protonix and Compazine. Patient states she started developing a rash all over her bed. Patient complains of Nausea, but denies vomiting or diarrhea. Physician History: 23 years old female presented in the ER with chief complaint of upper abdominal pain off and on for the last 2 to 3 days. 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 She had a thorough workup done including CT abdomen pelvis without contrast which showed mild mesenteric lymph node enlargement but no other acute process. She was discharged home on Compazine. Patient did have 1 episode of vomiting since discharge and earlier she was feeling nauseated and has taken Compazine followed by breakout in hives which are improved now. Since she had the hives her ab dominal pain is back and getting worse it is more in the upper abdomen with dull aching to burning sensation moderate intensity with associated nausea but no vomiting since then. No fever or chills reported. 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 Allergies/Adverse Reactions: No Known Drug Allergies Allergy (Verified 04/26/23 15:06) Hx Tetanus, Diphtheria Vaccination/Date Given: Yes Hx Influenza Vaccination/Date Given: Yes Hx Pneumococcal Vaccination/Date Given: No Immunizations Up to Date: Yes Travel Risk - International Travel Have you traveled outside of the country in past 3 weeks: No - Coronavirus Screening Are you exhibiting any of the following symptoms?: No Close contact with a COVID-19 positive Pt in past 14-21 Days: No - Vaccine Status Have you recieved a Covid-19 vaccination: No - Review of Systems Constitutional: No Symptoms Eyes: No Symptoms Ears, Nose, & Throat: No Symptoms Respiratory: No Symptoms Cardiac: No Symptoms Abdominal/Gastrointestinal: Abdominal Pain, Nausea, Vomiting Genitourinary Symptoms: No Symptoms Musculoskeletal: No Symptoms Skin: Rash Neurological: No Symptoms Hematologic/Lymphatic: No Symptoms Immunological/Allergic: No Symptoms - Past Medical History Pertinent Past Medical History: Yes Neurological History: No Pertinent History ENT History: No Pertinent History Cardiac History: No Pertinent History Respiratory History: No Pertinent History Endocrine Medical History: No Pertinent History Musculoskeletal History: No Pertinent History GI Medical History: No Pertinent History History: No Pertinent History Psycho-Social History: Depression Female Reproductive Disorders: No Pertinent History Other Medical History: PCOS, [place] wears hearing aids - Past Surgical History Past Surgical History: No Neuro Surgical History: No Pertinent History Cardiac: No Pertinent History Respiratory: No Pertinent History Gastrointestinal: No Pertinent History Genitourinary: No Pertinent History Musculoskeletal: No Pertinent History Female Surgical History: No Pertinent History - Social History Smoking Status: Never smoker Exposure to second hand smoke: No Drug Use: marijuana Patient Lives Alone: No - Female History Hx Last Menstrual Period: Last month Hx Now: No - Nursing Vital Signs Nursing Vital Signs: Initial Vital Signs Temperature 97.3 F 04/26/23 15:10 Pulse Rate 71 04/26/23 15:10 Respiratory Rate 20 04/26/23 15:10 Blood Pressure 134/92 04/26/23 15:10 O2 Sat by Pulse Oximetry 96 04/26/23 15:10 Pain Scale Pain Intensity 8 - Physical Exam General Appearance: no apparent distress, alert Eye Exam: PERRL/EOMI Ears, Nose, Throat Exam: normal ENT inspection, TMs normal, pharynx normal Neck Exam: normal inspection, supple, full range of motion Respiratory Exam: normal breath sounds, lungs clear Cardiovascular Exam: regular rate/rhythm, normal heart sounds Gastrointestinal/Abdomen Exam: soft, normal bowel sounds, tenderness (upper abd ) Extremity Exam: normal inspection, normal range of motion Neurologic Exam: alert, oriented x 3, cooperative Skin Exam: normal color SpO2 Interpretation: normal SpO2: 96 O2 Delivery: Room Air Ordered Tests: Active Orders 24 hr Category Date Time Status IV Insertion STAT Care 04/26/23 15:25 Active NPO (ED) STAT Care 04/26/23 15:25 Active ABDOMEN AND PELVIS W CONTRAST [CT] Stat Exams 04/26/23 16:08 Completed CBC W DIFF Stat Lab 04/26/23 15:35 Completed CMP Stat Lab 04/26/23 15:35 Completed LIPASE Stat Lab 04/26/23 15:35 Completed Lactic Acid Stat Lab 04/26/23 15:35 Completed UA W/RFX UR CULTURE Stat Lab 04/26/23 15:27 Completed Medication Summary Discontinued Medications Generic Name Dose Route Start Last Admin Trade Name Freq PRN Reason Stop Dose Admin Al Hydrox/Mg Hydrox/Simethicone Confirm 04/26/23 15:31 Mag Hydrox/Al Hydrox/Simeth 30 Ml Udcup Administered 04/26/23 15:32 Dose 30 ml .ROUTE .STK-MED ONE Diphenhydramine HCl 25 mg 04/26/23 15:25 04/26/23 15:37 Diphenhydramine Hcl 50 Mg/Ml Vial IV 04/26/23 15:26 25 mg STAT ONE Administration Diphenhydramine HCl Confirm 04/26/23 15:30 Diphenhydramine Hcl 50 Mg/Ml Vial Administered 04/26/23 15:31 Dose 50 mg .ROUTE .STK-MED ONE Sodium Chloride 1,000 mls @ 999 mls/hr 04/26/23 15:25 04/26/23 16:48 Sodium Chloride 0.9% 1000 Ml IV 04/26/23 16:25 Infused .Q1H1M STA Infusion Sodium Chloride Confirm 04/26/23 15:31 Sodium Chloride 0.9% 1000 Ml Administered 04/26/23 15:32 Dose 1,000 mls @ ud .ROUTE .STK-MED ONE Lidocaine HCl Confirm 04/26/23 15:30 Lidocaine Hcl 2% Viscous 15 Ml Udcup Administered 04/26/23 15:31 Dose 15 ml .ROUTE .STK-MED ONE Magnesium Hydroxide 45 ml 04/26/23 15:25 04/26/23 15:42 Mag Hydrx/Alum Hyd/Simeth/Lido 45 Ml Bottle PO 04/26/23 15:26 45 ml STAT ONE Administration Morphine Sulfate 2 mg 04/26/23 15:25 04/26/23 15:34 Morphine Sulfate 2 Mg/Ml Inj IV 04/26/23 15:26 2 mg STAT ONE Administration Morphine Sulfate Confirm 04/26/23 15:30 Morphine Sulfate 2 Mg/Ml Inj Administered 04/26/23 15:31 Dose 2 mg .ROUTE .STK-MED ONE Ondansetron HCl 4 mg 04/26/23 15:25 04/26/23 15:34 Ondansetron Hcl 4 Mg/2 Ml Vial IV 04/26/23 15:26 4 mg STAT ONE Administration Ondansetron HCl Confirm 04/26/23 15:30 Ondansetron Hcl 4 Mg/2 Ml Vial Administered 04/26/23 15:31 Dose 4 mg .ROUTE .STK-MED ONE Lab/Rad Data: Laboratory Result Diagrams 04/26/23 15:35 04/26/23 15:35 Laboratory Results 04/26/23 04/26/23 04/26/23 Range/Units 15:35 15:35 15:35 WBC 12.8 H (4.0-10.5) x10^3/uL RBC 4.81 (4.1-5.4) x10^6/uL Hgb 14.8 (12.0-16.0) g/dL Hct 44.1 (35-47) % MCV 91.7 (78-100) fL MCH 30.8 (26-32) pg MCHC 33.6 (32-36) g/dL RDW 12.1 (11.5-14.0) % Plt Count 284 (150-450) x10^3/uL MPV 11.0 (7.5-11.0) fL Gran % 69.0 H (36.0-66.0) % Immature Gran % (Auto) 0.5 H (0.00-0.4) % Nucleat RBC Rel Count 0.0 (0.00-0.1) % Eos # (Auto) 0.10 (0-0.5) x10^3/uL Immature Gran # (Auto) 0.07 H (0.00-0.03) x10^3u/L Absolute Lymphs (auto) 2.72 (1.0-4.6) x10^3/uL Absolute Monos (auto) 1.05 (0.0-1.3) x10^3/uL Absolute Nucleated RBC 0.00 (0.00-0.01) x10^3u/L Lymphocytes % 21.2 L (24.0-44.0) % Monocytes % 8.2 (0.0-12.0) % Eosinophils % 0.8 (0.00-5.0) % Basophils % 0.3 (0.0-0.4) % Absolute Granulocytes 8.83 H (1.4-6.9) x10^3/uL Basophils # 0.04 (0-0.4) x10^3/uL Sodium 134 L (137-145) mmol/L Potassium 3.9 (3.5-5.1) mmol/L Chloride 100 (98-107) mmol/L Carbon Dioxide 28 (22-30) mmol/L Anion Gap 10.0 (5-15) MEQ/L BUN 7 (7-17) mg/dL Creatinine 0.57 (0.52-1.04) mg/dL Estimated GFR 131.7 ML/MIN Glucose 109 H (74-106) mg/dL Lactic Acid 1.1 (0.4-2.0) Calcium 9.6 (8.4-10.2) mg/dL Total Bilirubin 1.10 (0.2-1.3) mg/dL AST 29 (14-36) U/L ALT 37 H (0-35) U/L Alkaline Phosphatase 85 (38-126) U/L Serum Total Protein 8.5 H (6.3-8.2) g/dL Albumin 4.4 (3.5-5.0) g/dL Lipase 64 (23-300) U/L Urine Color (Yellow) Urine Appearance (Clear) Urine pH (4.6-8.0) Ur Specific [place] (1.005-1.030) Urine Protein (Negative) Urine Glucose (UA) (Negative) mg/dL Urine Ketones (Negative) Urine Blood (Negative) Urine Nitrite (Negative) Urine Bilirubin (Negative) Urine Urobilinogen (0.2) mg/dL Ur Leukocyte Esterase (Negative) U Hyaline Cast (Auto) (0-2) /LPF Urine Microscopic RBC (0-5) /HPF Urine Microscopic WBC (0-5) /HPF Ur Epithelial Cells (None Seen) /HPF Urine Bacteria (None Seen) /HPF Urine Culture Reflexed (NO) 04/26/23 Range/Units 15:27 WBC (4.0-10.5) x10^3/uL RBC (4.1-5.4) x10^6/uL Hgb (12.0-16.0) g/dL Hct (35-47) % MCV (78-100) fL MCH (26-32) pg MCHC (32-36) g/dL RDW (11.5-14.0) % Plt Count (150-450) x10^3/uL MPV (7.5-11.0) fL Gran % (36.0-66.0) % Immature Gran % (Auto) (0.00-0.4) % Nucleat RBC Rel Count (0.00-0.1) % Eos # (Auto) (0-0.5) x10^3/uL Immature Gran # (Auto) (0.00-0.03) x10^3u/L Absolute Lymphs (auto) (1.0-4.6) x10^3/uL Absolute Monos (auto) (0.0-1.3) x10^3/uL Absolute Nucleated RBC (0.00-0.01) x10^3u/L Lymphocytes % (24.0-44.0) % Monocytes % (0.0-12.0) % Eosinophils % (0.00-5.0) % Basophils % (0.0-0.4) % Absolute Granulocytes (1.4-6.9) x10^3/uL Basophils # (0-0.4) x10^3/uL Sodium (137-145) mmol/L Potassium (3.5-5.1) mmol/L Chloride (98-107) mmol/L Carbon Dioxide (22-30) mmol/L Anion Gap (5-15) MEQ/L BUN (7-17) mg/dL Creatinine (0.52-1.04) mg/dL Estimated GFR ML/MIN Glucose (74-106) mg/dL Lactic Acid (0.4-2.0) Calcium (8.4-10.2) mg/dL Total Bilirubin (0.2-1.3) mg/dL AST (14-36) U/L ALT (0-35) U/L Alkaline Phosphatase (38-126) U/L Serum Total Protein (6.3-8.2) g/dL Albumin (3.5-5.0) g/dL Lipase (23-300) U/L Urine Color Yellow (Yellow) Urine Appearance Clear (Clear) Urine pH 7.5 (4.6-8.0) Ur Specific [place] 1.020 (1.005-1.030) Urine Protein Trace A (Negative) Urine Glucose (UA) Negative (Negative) mg/dL Urine Ketones Trace A (Negative) Urine Blood Negative (Negative) Urine Nitrite Negative (Negative) Urine Bilirubin Negative (Negative) Urine Urobilinogen 1.0 A (0.2) mg/dL Ur Leukocyte Esterase Negative (Negative) U Hyaline Cast (Auto) NONE SEEN (0-2) /LPF Urine Microscopic RBC 0-2 (0-5) /HPF Urine Microscopic WBC 3-5 (0-5) /HPF Ur Epithelial Cells Few (None Seen) /HPF Urine Bacteria None Seen (None Seen) /HPF Urine Culture Reflexed NO (NO) - Progress Progress: improved, re-examined Progress Note: 04/26/23 17:50 23 years old is evaluated for upper abdominal pain with nausea and vomiting for the last couple of days. She was evaluated yesterday with fairly unremarkable workup and was discharged on Compazine which patient took and started to have hives. She is given Benadryl in here and hives are improved. She is given only 2 mg of IV morphine along with fluids, on reevaluation she is resting comfortably. No abdominal tenderness. She is also given GI cocktail. Workup showed white count of 12, fairly unremarkable chemistries including lipase and CT abdomen pelvis with contrast is negative for any acute abdominal pelvic findings. I believe patient has gastritis with esophagitis. Recommended cont inue with PPI and outpatient follow-up. I will give her Zofran to go home as needed. Discussed signs symptoms of worsening needing return to ER which she seems understanding. Stable for discharge. Counseled pt/family regarding: lab results, diagnosis, need for follow-up, rad results Medical Desision Making - Independent Historian Additional History obtained from: Mother - Diagnostic Testing Diagnostic test were ordered, analyzed, and reviewed by me: Yes Radiological Interpretation: Reviewed by me, Teleradiologist Report - Risk of complications The pt has a mod risk of morbidity or mortality based on: Need for prescription drug management - Departure Departure Disposition: Home Clinical Impression: Gastritis, Abdominal pain, Allergic reaction Condition: Stable Critical Care Time: No Referrals: JANE FU [Primary Care Provider] - Follow up with PCP 2 days Instructions: Severe Abdominal Pain, Adult (DC) Additional Instructions: Continue with Protonix but take 40 mg daily instead of 20 mg daily. Take low fat diet. Do not take ibuprofen but Tylenol as needed. Take Zofran as needed. Follow-up with primary care for reevaluation. Stop taking Compazine. Return to ER for worsening abdominal pain, intractable nausea vomiting etc. Prescriptions: Sucralfate 1 gm [Carafate 1 GM] 1 g PO ACHS #20 tablet Ondansetron ODT 4 MG [Zofran Odt 4 mg] 1 ea PO QIDPRN PRN #7 tablet PRN Reason: n/v
[2023-04-26 15:41] LABS: Appearance Clear (Clear); Bacteria None Seen /HPF (None Seen); Bilirubin Negative (Negative); Blood Negative (Negative); Epithelial Cells Few /HPF (None Seen); Glucose, Urine Negative (Negative); Hyaline Casts NONE SEEN /LPF (0-2); Ketones Trace (Negative); Leukocyte Esterase Negative (Negative); Nitrite Negative (Negative); Ph 7.5 (4.6-8.0); Protein,Urine Dip Trace (Negative); RBC 0-2 /HPF (0-5)
[2023-04-26 15:50] LABS: ADD URINE CULTURE? NO (NO)
[2023-04-26 15:51] LABS: Absolute Neutrophil Ct (ANC) 8.83 x10^3/uL (1.4-6.9); BASOPHIL % 0.3 % (0.0-0.4); Basophil (Absolute #) 0.04 x10^3/uL (0-0.4); Eosinophil % 0.8 % (0.00-5.0); Hematocrit 44.1 % (35-47); Hemoglobin 14.8 g/dL (12.0-16.0); IMMATURE GRAN # 0.07 x10^3u/L (0.00-0.03); IMMATURE GRAN % 0.5 % (0.00-0.4); Lymphocyte (Absolute #) 2.72 x10^3/uL (1.0-4.6); Lymphocytes % 21.2 % (24.0-44.0); Mean Cell Volume 91.7 fL (78-100); Mean Corpuscular Hemoglobin 30.8 pg (26-32); Mean Corpuscular Hgb Concent. 33.6 g/dL (32-36); Monocyte (Absolute #) 1.05 x10^3/uL (0.0-1.3); Monocytes % 8.2 % (0.0-12.0); Platelet Count 284 x10^3/uL (150-450); Red Blood Count 4.81 x10^6/uL (4.1-5.4); Red Cell Distribution Width 12.1 % (11.5-14.0); White Blood Count 12.8 x10^3/uL (4.0-10.5)
[2023-04-26 16:01] LABS: ALBUMIN 4.4 g/dL (3.5-5.0); BILIRUBIN,TOTAL 1.1 mg/dL (0.2-1.3); Calcium 9.6 mg/dL (8.4-10.2); Creatinine 1 0.57 mg/dL (0.52-1.04); EST GLOMERULAR FILTRATION RATE 131.7 ML/MIN; Potassium 3.9 mmol/L (3.5-5.1); Total Protein 8.5 g/dL (6.3-8.2)
--- NOTE | 2023-04-26 17:06 | XRAY ---
CLINICAL HISTORY:upper abd pain COMPARISON:Prior Non-enhanced CT Abdomen from 04/25/2023 TECHNIQUE:Contiguous, multislice, post intravenous contrast [80 mL Isovue 370 mg] CT scan of the abdomen and pelvis was performed in the axial plane with multiplanar reconstructions. FINDINGS: Mild enlarged liver measuring about 18.4 cm in craniocaudal axis showing homogeneous attenuation with no focal mass lesion. No intrahepatic biliary dilatation. Normal-sized portal vein and CBD. Gallbladder shows no definite calculi inside. Borderline enlarged spleen measuring about 13.3 cm in long axis, shows normal contour and attenuation. Splenule noted measuring about 12 mm. Pancreas appear unremarkable. No adrenal mass. Both kidneys appear normal in size, shows lobulated contour (could be due to persistence of lobulations) and normal contour and attenuation. No calculus, mass or hydronephrosis in either kidney. No ascites. No para-aortic lymphadenopathy. Imaged bowel structures appear unremarkable. No significant bowel dilatation. Normal-appearing appendix. Adequately filled urinary bladder, appears free from intraluminal stones, mass or diverticular outpouching. Normal-sized uterus. No adnexal mass No acute osseous abnormality or suspicious bony lesions. Visualized sections of lower chest shows no focal mass or consolidation. IMPRESSION: Mild hepatosplenomegaly. No acute abdominopelvic abnormality. No Significant interval changes when compared with prior study. Clinical correlation is suggested. Electronically Signed by: Maritza Stahl MD. (04/26/2023 17:02:20 EST)
[2023-04-26 17:08] VITALS: BP 130/66
[2023-04-26 18:00] VITALS: PULSE 69; RESP 18; O2SAT 94
== END 2023-04-26 18:07 | disposition home or self-care (01) ==
LOC: ED 14:44
DX: K29.70 Gastritis, unspecified, without bleeding (principal); R10.10 Upper abdominal pain, unspecified; L50.0 Allergic urticaria; T43.3X5A Adverse effect of phenothiazine antipsychotics and neuroleptics, initial encounter; R11.0 Nausea; Z28.310 Unvaccinated for COVID-19
CPT/HCPCS: 36000; 36415; 74177; 80053; 81001; 83605; 83690; 85025; 96360; 96374; 96375; 99284; J1200; J2270; J2405; A9270-GY